=== PATIENT | male | born 1965 | race Caucasian/White ===

== ENCOUNTER 2019-05-08 06:09 | Day surgery (SDC) | payer OTHER ==
[2019-05-08] MEDS ORDERED: PROPOFOL 40 ML (07:36)
[2019-05-08] MEDS ORDERED: LIDOCAINE 2% (SDV) 5 ML INJ (07:36)
[2019-05-08] MEDS ORDERED: ONDANSETRON 4 MG INJ IV (08:00)
[2019-05-08] MEDS ORDERED: PROPOFOL 20 ML (08:07)
== END 2019-05-08 10:05 | disposition home or self-care (01) ==
LOC: GIL 06:09
DX: Z12.11 Encounter for screening for malignant neoplasm of colon (principal); K64.9 Unspecified hemorrhoids; I10 Essential (primary) hypertension; E78.5 Hyperlipidemia, unspecified; Z86.73 Personal history of transient ischemic attack (TIA), and cerebral infarction without residual deficits; Z79.82 Long term (current) use of aspirin
CPT/HCPCS: 45378